=== PATIENT | female | born 1985 | race African-American/Black ===

== ENCOUNTER 2018-04-04 02:24 | Emergency (ER) | payer OTHER ==
[~2018-04-04] VITALS: Ht 152.4 cm; Wt 88.5 kg
[2018-04-04 04:25] LABS: HEMATOCRIT 39.2 % (37.0-47.0); HEMOGLOBIN 12.8 gm/dL (12.0-15.0); MCH 28.5 pg (26.0-34.0); MCHC 32.6 g/dL (28.0-37.0); MCV 87.3 fL (80.0-100.0); PLATELET COUNT 269 thou/uL (150-400); RBC 4.49 mil/uL (4.20-5.00); RDW 13.5 % (10.5-14.5); WBC 2.7 thou/uL (4.0-11.0)
[2018-04-04 04:29] LABS: CALCIUM 8.9 mg/dL (8.5-10.1); CREATININE 0.8 mg/dL (0.6-1.0); POTASSIUM 3.9 mmol/L (3.5-5.1)
[2018-04-04 05:09] LABS: PLATELET ESTIMATE NORMAL
[2018-04-04 05:25] LABS: URINE BILIRUBIN NEGATIVE (Negative); URINE BLOOD 1+ (Negative); URINE CLARITY TURBID; URINE COLOR YELLOW; URINE GLUCOSE-RANDOM* NEGATIVE (Negative); URINE KETONES NEGATIVE (Negative); URINE LEUKOCYTES-REFLEX NEGATIVE (Negative); URINE NITRITE-REFLEX NEGATIVE (Negative); URINE PROTEIN (DIPSTICK) NEGATIVE (Negative); URINE SPECIFIC GRAVITY >= 1.030 (1.005-1.035); URINE UROBILINOGEN 0.2 E.U./dl (0.2-1.0)
[2018-04-04 05:33] LABS: BACTERIA-REFLEX 1-9 Few /HPF (None Seen); CASTS None Seen /LPF (None Seen); MUCUS >6 Heavy strn/LPF (None Seen); SQUAMOUS 4-10 Moderate /LPF (0-3); URINE RBC 3-10 Few /HPF (0-2); URINE WBC-REFLEX 0-5 Rare /HPF (0-5)
[2018-04-04 05:34] LABS: AMORPHOUS URATES Moderate /LPF (None Seen)
[2018-04-04] MEDS ORDERED: MOBIC15 MG PO (06:00)
[2018-04-04 06:18] VITALS: BP 114/61
== END 2018-04-04 06:20 | disposition home or self-care (01) ==
LOC: ER 02:24
PROVIDERS: Emergency Medicine
DX: M79.10 Myalgia, unspecified site (principal)